=== PATIENT | male | born 1990 | race Caucasian/White ===

== ENCOUNTER 2018-01-24 11:47 | Emergency (ER) | payer OTHER, MEDICAID | END 2018-01-24 12:51 | disposition home or self-care (01) | LOC: M ED 11:47 | DX: T22.6 Corrosion of second degree of shoulder and upper limb, except wrist and hand (principal); T65.91XA Toxic effect of unspecified substance, accidental (unintentional), initial encounter; Y92.89 Other specified places as the place of occurrence of the external cause; F90.9 Attention-deficit hyperactivity disorder, unspecified type; Z79.899 Other long term (current) drug therapy | CPT/HCPCS: 99282 ==